=== PATIENT | female | born 1955 | race American Indian/Alaskan Native ===

== ENCOUNTER 2017-08-24 17:16 | Emergency (ER) | payer MEDICAID, OTHER ==
--- NOTE | 2017-08-24 17:45 | Emergency Department Report ---
Chief Complaint: Vaginal Bleeding Stated Complaint: CANCER/BLEEDING Time Seen by Provider: 08/24/17 17:42 - HPI History of Present Illness: PT states she has been dx with uterine cancer. PT states she is having vaginal bleeding. PT states she also has fibroids. - ROS Review of Systems: + vaginal bleeding (increased over last three years) +abd pain - Exam Vital Signs: Vital Signs 08/24/17 17:34 Temperature 98.5 F Pulse Rate 106 H Respiratory 16 Rate Blood Pressure 123/75 O2 Sat by Pulse 97 Oximetry Physical Exam: pt looks well, non toxic abd soft and non tender MSE screening note: Focused history and physical exam performed. Due to findings the following was ordered: labs ED Disposition for MSE Condition: Stable
[2017-08-24 19:07] LABS: Basophils % (Auto) 0.4 % (0.0-1.8); Eosinophils % (Auto) 1.2 % (0.0-4.3); Hematocrit 37.3 % (30.3-42.9); Hemoglobin 12.1 gm/dl (10.1-14.3); Mean Corpuscular HGB Conc 33 % (30-34); Mean Corpuscular Hemoglobin 29 pg (28-32); Mean Corpuscular Volume 90 fl (79-97); Platelet Count 373 K/mm3 (140-440); Red Blood Count 4.15 M/mm3 (3.65-5.03); Red Cell Distribution Width 15.6 % (13.2-15.2); White Blood Count 7.6 K/mm3 (4.5-11.0)
[2017-08-24 19:17] LABS: INR 0.97 (0.87-1.13)
[2017-08-24 19:18] LABS: Partial Thromboplastin Time 31.3 Sec. (24.2-36.6)
[2017-08-24 19:20] LABS: Alanine Aminotransferase 15 units/L (7-56); Albumin 4.2 g/dL (3.9-5); Albumin/Globulin Ratio 1.2 %; Alkaline Phosphatase 64 units/L (35-129); Anion Gap 20 mmol/L; BUN/Creatinine Ratio 24; Blood Urea Nitrogen 17 mg/dL (7-17); Calcium 9.5 mg/dL (8.4-10.2); Carbon Dioxide 25 mmol/L (22-30); Chloride 101.9 mmol/L (98-107); Glucose 92 mg/dL (65-100); Potassium 4.3 mmol/L (3.6-5.0); Sodium 143 mmol/L (137-145); Total Protein 7.6 g/dL (6.3-8.2)
[2017-08-25] MEDS ORDERED: TORADOL IM ONE (06:24)
--- NOTE | 2017-08-25 07:06 | Emergency Department Report ---
ED General Adult HPI - General Chief complaint: Vaginal Bleeding Stated complaint: CANCER/BLEEDING Time Seen by Provider: 08/24/17 17:42 Source: patient Mode of arrival: Ambulatory Limitations: No Limitations - History of Present Illness Initial comments: Patient is a 62-year-old female past medical history of endometrial right adenocarcinoma of the uterus. Patient presents with vaginal bleeding patient states that she has been having vaginal bleeding for about a month about 2 weeks ago she was in [place] and she got a biopsy of her uterus. She presents with bleeding and pelvic pain that's a 3 out of 10. It is crampy type pain that radiates throughout her pelvis nothing makes it better or worse. Patient denies any nausea or vomiting. She states that she has an appointment with Dr. Cuauhtemoc Kelly general [facility] on October 12. However she comes into the ER for an appointment to be moved earlier. Severity scale (0 -10): 3 - Related Data Allergies Allergy/AdvReac Type Severity Reaction Status Date / Time No Known Allergies Allergy Verified 08/24/17 17:39 ED Review of Systems ROS: Stated complaint: CANCER/BLEEDING Other details as noted in HPI Constitutional: denies: chills, fever Eyes: denies: eye pain, eye discharge, vision change ENT: denies: ear pain, throat pain Respiratory: denies: cough, shortness of breath, wheezing Cardiovascular: denies: chest pain, palpitations Endocrine: no symptoms reported Gastrointestinal: denies: abdominal pain, nausea, diarrhea Genitourinary: as per HPI (vaginal bleeding). denies: urgency, dysuria, discharge Musculoskeletal: denies: back pain, joint swelling, arthralgia Skin: denies: rash, lesions Neurological: denies: headache, weakness, paresthesias Psychiatric: denies: anxiety, depression Hematological/Lymphatic: denies: easy bleeding, easy bruising ED Past Medical Hx - Past Medical History Previous Medical History?: Yes Hx of Cancer: Yes Additional medical history: arm cyst - Surgical History Past Surgical History?: Yes Additional Surgical History: arm and breast cyst - Social History Smoking Status: Never Smoker Substance Use Type: Alcohol ED Physical Exam - General Limitations: No Limitations General appearance: alert, in no apparent distress - Head Head exam: Present: atraumatic, normocephalic - Eye Eye exam: Present: normal appearance - ENT ENT exam: Present: mucous membranes moist - Neck Neck exam: Present: normal inspection - Respiratory Respiratory exam: Present: normal lung sounds bilaterally. Absent: respiratory distress - Cardiovascular Cardiovascular Exam: Present: regular rate, normal rhythm. Absent: systolic murmur, diastolic murmur, rubs, gallop - GI/Abdominal GI/Abdominal exam: Present: soft, normal bowel sounds - External exam: Present: other (deferred ) - Extremities Exam Extremities exam: Present: normal inspection - Back Exam Back exam: Present: normal inspection - Neurological Exam Neurological exam: Present: alert, oriented X3 - Psychiatric Psychiatric exam: Present: normal affect, normal mood - Skin Skin exam: Present: warm, dry, intact, normal color. Absent: rash ED Course Vital Signs 08/24/17 08/25/17 08/25/17 17:34 06:16 06:17 Temperature 98.5 F 97.5 F L Pulse Rate 106 H 90 Respiratory 16 16 16 Rate Blood Pressure 123/75 Blood Pressure 134/71 [Left] O2 Sat by Pulse 97 100 100 Oximetry - Consultations Consultation #1: 08/25/17 07:06 Placed a consult to Dr. Kenia Wills general OBGYN. She states that patient will need to be seen by a [employer] oncologist and that she doesn't know any [employer]er oncologist. She recommended patient going to an academic ER for a possible referral. ED Medical Decision Making - Lab Data Result diagrams: 08/24/17 17:48 08/24/17 17:56 Lab Results 08/24/17 08/24/17 08/24/17 Range/Units 17:48 17:55 17:56 WBC 7.6 (4.5-11.0) K/mm3 RBC 4.15 (3.65-5.03) M/mm3 Hgb 12.1 (10.1-14.3) gm/dl Hct 37.3 (30.3-42.9) % MCV 90 (79-97) fl MCH 29 (28-32) pg MCHC 33 (30-34) % RDW 15.6 H (13.2-15.2) % Plt Count 373 (140-440) K/mm3 Lymph % (Auto) 28.6 (13.4-35.0) % Woodson % (Auto) 8.6 H (0.0-7.3) % Eos % (Auto) 1.2 (0.0-4.3) % Baso % (Auto) 0.4 (0.0-1.8) % Lymph # 2.2 (1.2-5.4) K/mm3 Woodson # 0.7 (0.0-0.8) K/mm3 Eos # 0.1 (0.0-0.4) K/mm3 Baso # 0.0 (0.0-0.1) K/mm3 Seg Neutrophils % 61.2 (40.0-70.0) % Seg Neutrophils # 4.7 (1.8-7.7) K/mm3 PT (12.2-14.9) Sec. INR (0.87-1.13) APTT (24.2-36.6) Sec. Sodium 143 (137-145) mmol/L Potassium 4.3 (3.6-5.0) mmol/L Chloride 101.9 (98-107) mmol/L Carbon Dioxide 25 (22-30) mmol/L Anion Gap 20 mmol/L BUN 17 (7-17) mg/dL Creatinine 0.7 (0.7-1.2) mg/dL Estimated GFR > 60 ml/min BUN/Creatinine Ratio 24 % Glucose 92 (65-100) mg/dL Calcium 9.5 (8.4-10.2) mg/dL Total Bilirubin 0.30 (0.1-1.2) mg/dL AST 22 (5-40) units/L ALT 15 (7-56) units/L Alkaline Phosphatase 64 (35-129) units/L Total Protein 7.6 (6.3-8.2) g/dL Albumin 4.2 (3.9-5) g/dL Albumin/Globulin Ratio 1.2 % HCG, Quant < 2 (0-4) mIU/mL Blood Type Antibody Screen [facility]O Antibody Screen 08/24/17 08/24/17 Range/Units 17:58 19:20 WBC (4.5-11.0) K/mm3 RBC (3.65-5.03) M/mm3 Hgb (10.1-14.3) gm/dl Hct (30.3-42.9) % MCV (79-97) fl MCH (28-32) pg MCHC (30-34) % RDW (13.2-15.2) % Plt Count (140-440) K/mm3 Lymph % (Auto) (13.4-35.0) % Woodson % (Auto) (0.0-7.3) % Eos % (Auto) (0.0-4.3) % Baso % (Auto) (0.0-1.8) % Lymph # (1.2-5.4) K/mm3 Woodson # (0.0-0.8) K/mm3 Eos # (0.0-0.4) K/mm3 Baso # (0.0-0.1) K/mm3 Seg Neutrophils % (40.0-70.0) % Seg Neutrophils # (1.8-7.7) K/mm3 PT 13.4 (12.2-14.9) Sec. INR 0.97 (0.87-1.13) APTT 31.3 (24.2-36.6) Sec. Sodium (137-145) mmol/L Potassium (3.6-5.0) mmol/L Chloride (98-107) mmol/L Carbon Dioxide (22-30) mmol/L Anion Gap mmol/L BUN (7-17) mg/dL Creatinine (0.7-1.2) mg/dL Estimated GFR ml/min BUN/Creatinine Ratio % Glucose (65-100) mg/dL Calcium (8.4-10.2) mg/dL Total Bilirubin (0.1-1.2) mg/dL AST (5-40) units/L ALT (7-56) units/L Alkaline Phosphatase (35-129) units/L Total Protein (6.3-8.2) g/dL Albumin (3.9-5) g/dL Albumin/Globulin Ratio % HCG, Quant (0-4) mIU/mL Blood Type O POSITIVE Antibody Screen TNR [facility]ATO Antibody Screen Negative - Medical Decision Making Medical diagnosis uterine cancer Differential multiple diagnosis: Biopsy bleed, coagulopathy I'll get CBC, CMP, and blood coagulation studies and IM toradol. I consulted with [facility] patient will need referral for a commercial real estate sales manager there are none at this hospital. I will recommend patient to go to [place] [facility] to get a referral for [employer] oncologist for an earlier appointment. Discussed plan with patient she agrees with plan. Additional verbal discharge instructions were given. Pt is feeling better after IM shot or toradol. Critical care attestation.: If time is entered above; I have spent that time in minutes in the direct care of this critically ill patient, excluding procedure time. ED Disposition Clinical Impression: Vaginal bleeding Uterine cancer Qualifiers: Malignant neoplasm of uterus location: unspecified site of uterus Qualified Code(s): C55 - Malignant neoplasm of uterus, part unspecified Disposition: DC-01 TO HOME OR SELFCARE Is pt being admited?: No Does the pt Need Aspirin: No Condition: Stable Instructions: Robot Assisted Laparoscopic Hysterectomy (GEN), Dysfunctional Uterine Bleeding (ED) Referrals: LEYLA GOODWIN MD [Staff Physician] - 3-5 Days ULYSSES CAT MD [Staff Physician] - 3-5 Days
[2017-08-25 08:03] VITALS: BP 135/58
== END 2017-08-25 08:30 | disposition home or self-care (01) ==
LOC: ED 17:16
DX: N93.9 Abnormal uterine and vaginal bleeding, unspecified (principal); C55 Malignant neoplasm of uterus, part unspecified; Z98.890 Other specified postprocedural states
CPT/HCPCS: 36415; 80053; 84702; 85025; 85610; 85730; 86850; 86900; 86901; 96372; 99283; J1885